=== PATIENT | female | born 1965 ===

== ENCOUNTER 2021-09-22 11:30 | Day surgery (SDC) | payer OTHER ==
[2021-09-22 11:27] LABS: Absolute Lymphocytes (CBC) 1.2 K/uL (0.7-4.9); Hematocrit 44.8 % (36.0-45.0); Lymphocytes % 22.4 % (15.3-44.8); MPV 7.8 fL (7.6-11.3); RBC Red Blood Cell Count 4.82 M/uL (3.86-4.86)
[2021-09-22 11:41] LABS: Potassium 3.6 mmol/L (3.5-5.1)
--- NOTE | 2021-09-22 11:52 | RAD REPORT ---
EXAM DESCRIPTION: Akira Crews (2 Views)09/22/2021 11:28 am CLINICAL HISTORY: Preop for cyst removal from back COMPARISON: None FINDINGS: The lungs are hyperaerated. The lungs appear clear of acute infiltrate. The heart is normal size IMPRESSION: No acute abnormalities displayed
[2021-09-22] MEDS ORDERED: CEFAZOLIN SODIUM 1 GM/VIAL ONE (11:53)
[2021-09-22] MEDS ORDERED: Ringers Lactate 1,000 ML IV ONE (11:53)
[2021-09-22] MEDS ORDERED: dexAMETHasone 10 MG/ML VIAL ONE (14:30)
[2021-09-22] MEDS ORDERED: LIDOCAINE 2% MPF 5 ML VIAL ONE (14:30)
[2021-09-22] MEDS ORDERED: FENTANYL CITR 100 MCG/2 ML ONE (14:30)
[2021-09-22] MEDS ORDERED: MIDAZOLAM HCL 2 MG/2 ML INJ ONE (14:30)
[2021-09-22] MEDS ORDERED: ONDANSETRON 4 MG/2 ML VIAL ONE (14:31)
[2021-09-22 16:31] VITALS: BP 132/61; TEMP 96.7; O2SAT 95
--- NOTE | 2021-09-22 17:56 | EKG ---
Test Date: 2021-09-22 Test Time: 11:07:49 [employer]: GABRIELLE MEASUREMENT RESULTS: Intervals: Rate: 70 TX: 154 QRSD: 96 QT: 370 QTc: 399 [place]: P: 75 TX: 154 QRS: 54 T: 63 INTERPRETIVE STATEMENTS: Normal sinus rhythm Possible Left atrial enlargement Septal infarct, age undetermined Abnormal ECG Compared to ECG 03/31/2007 21:37:04 Myocardial infarct finding now present Electronically Signed On 09-22-21 17:56:18 CDT by Ty Perez
--- NOTE | 2021-09-23 00:25 | OP ---
Date of Procedure: 09/22/2021 Surgeon: Abraham Hart MD Preoperative Diagnosis: Infected, back subcutaneous mass. Postoperative Diagnosis: Infected, back subcutaneous mass. Procedure: Excisional biopsy of infected subcutaneous mass 3 x 3 cm. Anesthesia: General plus local. Complications: None. Indications: This is a case of a 55-year-old patient who comes to us with a subcutaneous mass in the back. It has been there for some time, but now it is starting to get red. No discharge coming from that area. She was started on antibiotics by mouth by the primary doctor and sent to us for excisio n. The benefits, alternatives, and risks of excisional biopsy of infected subcutaneous back mass wer e fully explained, which include, but not limited to infection, bleeding, damage to adjacent structur es, anesthesia complication, recurrence, WI, and . She also understands this may not relieve he r symptoms, she might need more than one surgical intervention, she may require wound care. Obviousl y, she preferred to have sutures in. I promised her that I was trying to put sutures if it is safe. If we see too much infection, we have to leave it open by secondary intention. If we put a stitch i n that area and in the next few days if we see that redness is not improving, then I may have to slick ve the stitches and leave the area to close by secondary intention with wet-to-dry dressing. Under t hose conditions, she understood and signed the consent. The area of concern was marked by me and the patient in the holding room. Description Of Procedure: The patient was brought to the operating room, placed in supine position, and anesthesia was done without complication. The patient was placed in lateral decubitus position w ith proper protection. The back area was prepped and draped in sterile fashion. Local anesthesia wa s applied, before that time-out was done. A wedge incision was made in the skin all the way down to subcutaneous tissue. At this moment, we do not have any taco pus showing up. I still cultured the area. The area was irrigated and hemostasis was obtained and then we proceeded to close the subcutan eous tissue with 3-0 chromic and the skin with 3-0 nylon. Sponge count and instrument counts were co rrect. The patient tolerated the procedure well. The patient was sent to recovery in stable conditi on. HM/MODL Voice ID: [id number] Report ID: [id number]
--- NOTE | 2021-09-23 00:31 | DS ---
Date of Discharge: 09/22/2021 Disposition: Home. Condition: Stable. Activity: As tolerated, no heavy lifting. Follow Up: Follow up in my office in 1 week. Call for appointment at [phone]. Keep area dry for 4 8 hours, then clean with soap and water. Put some triple antibiotics over the area and then cover wi th sterile dressings. The patient will be followed up in my office next week. TAURUS/ROSALIND Voice ID: [id number] Report ID: [id number]
== END 2021-09-22 16:25 | disposition home or self-care (01) ==
LOC: OR 11:30
PROVIDERS: ATTEND Surgery
PROC: 0JB70ZZ Excision of Back Subcutaneous Tissue and Fascia, Open Approach (ICD-10-PCS; principal; 2021-09-22 13:30)
DX: L72.0 Epidermal cyst (principal); Z20.822 Contact with and (suspected) exposure to COVID-19; F41.9 Anxiety disorder, unspecified; K80.20 Calculus of gallbladder without cholecystitis without obstruction
CPT/HCPCS: 93005; 87070; 85025; 80048; 36415; 87205; 88304; 87075; 71046; 11403; U0003; J2250; J3010; J1100; J7120; J2405; J0690